=== PATIENT | female | born 1985 | race Caucasian/White ===

== ENCOUNTER 2016-06-28 14:37 | Inpatient (IN) | payer OTHER ==
[~2016-06-28] VITALS: Ht 162.6 cm; Wt 79.6 kg
[~2016-06-28 14:37] MED LIST: ACET500C PO; IBUP80TA PO; PRENTAB8 PO
[2016-06-28] MEDS ORDERED: PROM50TA2 PO (14:55)
[2016-06-28] MEDS ORDERED: NS 1,000 ML IV ONE ×2 (16:15→17:15)
[2016-06-28 16:24] LABS: BASO # 0.1 K/mm3 (0.0-0.2); BASO % 0.3 % (0.0-1.0); EOS % 0.1 % (0.0-3.0); LARGE UNSTAINED CELL # 0.1 K/mm3 (0.0-0.4); LARGE UNSTAINED CELL % 0.6 % (0.0-4.0); LYMPH # 1.1 K/mm3 (1.5-6.5); LYMPH % 5.2 % (24.0-44.0); MEAN CORPUSCULAR HEMOGLOBIN 27.6 pg (27.0-33.0); MEAN CORPUSCULAR HGB CONC 34.3 g/dl (32.0-36.5); MEAN CORPUSCULAR VOLUME 80.4 fl (80.0-96.0); MONO # 0.4 K/mm3 (0.0-0.8); MONO % 2.2 % (0.0-5.0); NEUTROPHILS # 16.9 K/mm3 (1.8-7.7); NEUTROPHILS % 91.5 % (36.0-66.0); PLATELET COUNT, AUTOMATED 232 k/mm3 (150-450); RED CELL DISTRIBUTION WIDTH 13.1 % (11.5-14.5); WHITE BLOOD COUNT 18.5 K/mm3 (4.0-10.0)
[2016-06-28 16:38] LABS: ALBUMIN 2.8 GM/DL (3.2-5.2); ALBUMIN/GLOBULIN RATIO 0.61 (1.00-1.93); ALKALINE PHOSPHATASE 214 U/L (45-117); ALT/SGPT 15 U/L (12-78); ANION GAP 13 MEQ/L (8-16); AST/SGOT 25 U/L (15-37); BILIRUBIN,DIRECT 0.1 MG/DL (0.0-0.2); BILIRUBIN,TOTAL 0.4 MG/DL (0.2-1.0); BLOOD UREA NITROGEN 11 MG/DL (7-18); CALCIUM LEVEL 8.9 MG/DL (8.5-10.1); CARBON DIOXIDE LEVEL 20 MEQ/L (21-32); CHLORIDE LEVEL 106 MEQ/L (98-107); CREATININE FOR GFR 0.52 MG/DL (0.55-1.02); FREE T4 0.82 NG/DL (0.76-1.46); GLOMERULAR FILTRATION RATE > 60.0 (>60); GLUCOSE, FASTING 81 MG/DL (70-105); INR 1.06; POTASSIUM SERUM 3.8 MEQ/L (3.5-5.1); SODIUM LEVEL 139 MEQ/L (136-145); TOTAL PROTEIN 7.4 GM/DL (6.4-8.2)
[2016-06-28] MEDS ORDERED: ISOVUE-370 76% 100ML VIAL (Q9967) As Ordered ONE (16:44)
--- NOTE | 2016-06-28 16:56 | REP ---
Clinical: chest pain. Comparison: none. Findings: The mediastinum and cardiac silhouette are stable and within normal limits for portable technique. The lung ogden are clear without acute consolidation, effusion, or pneumothorax. Skeletal structures are intact. Impression: Normal portable chest x-ray Signed by Sarbjit Fernandes MD 06/28/2016 04:47 P
--- NOTE | 2016-06-28 17:24 | REP ---
Clinical: Chest pain. Rule out pulmonary embolus. Technique: Axial contrast enhanced images from the thoracic inlet to the upper abdomen using 100 ml Isovue 370 intravenous contrast material with coronal and sagittal re-formations. Findings: Suboptimal enhancement of the pulmonary vasculature is noted and no obvious main or first order emboli are identified. Thoracic aorta is normal caliber without aneurysm or dissection. Heart and pericardium are normal. Bilateral lung ogden are well aerated and clear without acute pulmonary parenchymal consolidation or atelectasis. No nodule or mass lesion. No pleural effusion/reaction. No pneumothorax. No adenopathy. Impression: Limited examination. No obvious pulmonary embolus. No acute pleuroparenchymal or mediastinal process. Signed by Sarbjit Fernandes MD 06/28/2016 05:15 P
--- NOTE | 2016-06-28 17:39 | REP ---
Clinical: Calf pain. Technique: Cohen scale and color Doppler evaluation using linear high frequency transducer. Findings: Ultrasound examination of the right and left lower extremity deep venous structures from the common femoral vein to the popliteal vein demonstrates normal compressibility flow and wave patterns in response to respiration and augmentation. There is no evidence for deep venous thrombosis. Impression: No evidence for deep venous thrombosis. Signed by Sarbjit Fernandes MD 06/28/2016 05:30 P
--- NOTE | 2016-06-28 18:31 | ECGEPIP ---
Stationary ECG Study [facility] - ED Test Date: 2016-06-28 Pat Name: KEANU LUIS Department: Room: - Gender: F Washcloth Folder: faith : 1985 Requested By: Patricia Peñaloza Order Number: [id number] Reading MD: Kashif Farrar Measurements Intervals [place] Rate: 149 P: 76 NC: 112 QRS: 68 QRSD: 77 T: 13 QT: 292 QTc: 460 Interpretive Statements SINUS TACHYCARDIA WITH SHORT NC INTERVAL NONSPECIFIC ST & T-WAVE ABNORMALITY ABNORMAL RHYTHM ECG Electronically Signed On 06-28-2016 18:31:17 EDT by Kashif Farrar
--- NOTE | 2016-06-28 18:33 | ECGEPIP ---
Stationary ECG Study [facility] - ED Test Date: 2016-06-28 Pat Name: KEANU LUIS Department: Room: - Gender: F Glued Wood Tester: SOBEIDA : 1985 Requested By: Patricia Peñaloza Order Number: [id number] Reading MD: Kashif Farrar Measurements Intervals [place] Rate: 116 P: 63 OR: 129 QRS: 39 QRSD: 78 T: 5 QT: 321 QTc: 446 Interpretive Statements SINUS TACHYCARDIA NSTTW ABNORMALITY RATE DECREASED COMPARED TO STUDY ON SAME DATE Electronically Signed On 06-28-2016 18:32:38 EDT by Kashif Farrar
[2016-06-28] MEDS ORDERED: ACET-654 PO (19:20)
[2016-06-28] MEDS ORDERED: PRENTAB16 PO (19:20)
[2016-06-28] MEDS ORDERED: ACETAMINOPHEN TAB 650MG DOSE (2X325MG) PO PRN (20:30)
[2016-06-28] MEDS ORDERED: ENOXAPARIN 80 MG/0.8 ML SYRINGE (J1650) SC ONE (21:30)
[2016-06-28] MEDS ORDERED: NS 1,000 ML IV SCH (21:45)
[2016-06-28 21:48] VITALS: O2SAT 96
[2016-06-28 21:57] LABS: ABG BASE EXCESS -3.5 (-2.0-2.0); ABG HCO3 19.8 MEQ/L (22.0-26.0); ABG PARTIAL PRESSURE CO2 29.8 mmHg (35.0-45.0); ABG PARTIAL PRESSURE O2 104.6 mmHg (75.0-100.0); ABG STANDARD HCO3 21.5 MEQ/L (22.0-26.0); ABG TOTAL CO2 20.7 MEQ/L (22.0-29.0)
--- NOTE | 2016-06-28 22:05 | HPEPDOC ---
General Date of Admission Jun 28, 2016 at 20:19 Chief Complaint The patient is a 30-year-old female Presented to the ER with complaints of chest pain History of Present Illness Patient is a 30 year female with a PMHx of suspected PE during (2007; 1st ) who presented to the ER with complaints of chest pain. Patient noted that a few weeks ago she had some leg pain on her left anterior / lateral / proximal leg. She described it as a bruised area that felt like a knot , no redness or swelling of the leg was noted. She denied any trauma to the leg. This spontaneously resolved. She reported that she has been having shortness of breath since that point. Her last appointment with obstetrics was 2 weeks ago and she was told her heart rate was elevated (doesnt remember number). She noted that yesterday she has had some left upper shoulder / back pain. She took a Tylenol and went to bed. This morning she awoke with left sided chest pain. 7-8/10, sharp/tight, continuous, radiating to neck and back. No alleviating factors. Aggravated with deep breaths. Reports she continued to have shortness of breath. Denied palpitations. She noted that this morning she also had nausea and vomiting; greater than 20x, described as yellow with small amounts of blood streaking. No abdominal pain, constipation, diarrhea or dysuria. She denies any fevers at home. She has a history of 4 pregnancies in the past and is currently in her 5th . All other pregnancies went to full term; she had complications of pyelonephritis and asthma during her priors. During her first she was suspected of having a pulmonary embolism because of a similar presentation and was started on an oral anticoagulant from 28 weeks to delivery. Patient also noted that she was advised to follow up with cardiology as an outpatient because of her elevated heart rate, but has failed to do so. Home Medications Scheduled Multivitamins/ ( Complete 14-0.4 mg) 1 Tab Tab 1 TAB PO DAILY ( Reported) Promethazine Hcl (Promethazine HCl) 50 Mg Tab 50 MG PO DAILY (Reported) Scheduled PRN Acetaminophen (Acetaminophen) 325 Mg Tab 650 MG PO Q4H PRN PRN PAIN (Reported) Allergies Coded Allergies: Cephalexin (Verified Allergy, Severe, shortness of breath, throat tightens , 12/26/14) Past Medical History Medical History Suspected PE during (2008; 1st ) Surgical History Left ankle torn ligament surgery Family History - Mother and father with a history of hypertension - No family history of malignancy or blood clots Social History - Denies the use of alcohol, tobacco or illicit drugs - Denies recent travel or sick contacts - Lives with and 4 children - Occupation; chemical specialist Review of Symptoms Other systems Eyes: No visual changes or eye pain Ears, Nose, Throat: Denies nose bleeds, or difficulty swallowing Cardiovascular: Positive chest pain, No sweating, or orthopnea Respiratory: Denies cough, or wheezing, Positive shortness of breath GI: Positive nausea, vomiting, No abdominal pain, diarrhea or constipation : Denies pain with urination or frequency Musculoskeletal: Denies joint pain or swelling Neuro / Psych: Denies muscle weakness or sensory loss Skin: No skin rashes noted All other review of systems negative; otherwise stated in history of present illness Vital Signs - Vitals: BP 110/69, HR 106, RR 20, Sat 97%RA, Temp 97.3 - General: Lying in bed, No acute distress, Speaking in full sentences, AAOx3 - HEENT: NC, AT, PERRLA, EOMI - CVS: Tachycardic, Regular rhythm, +S1S2, - Murmurs / rubs / gallops - Lungs: Fair air entry bilaterally, Clear to auscultation, No wheezing / rales / rhonchi - Abdomen: Soft, Non-tender, + Bowel sounds x 4 - Extremities: + PPx4, No lower extremity edema, No calf tenderness - Neuro: No focal motor or sensory deficit - Skin: No visible rashes Laboratory Data Labs 24H Laboratory Tests 2 06/28/16 15:35: Activated Partial Thromboplast Time 25.3L, Aspartate Amino Transf (AST/SGOT) 25 , Alanine Aminotransferase (ALT/SGPT) 15, Alkaline Phosphatase 214H, Total Bilirubin 0.4, Direct Bilirubin 0.1, Albumin 2.8L, Albumin/Globulin Ratio 0.61L , Anion Gap 13, White Blood Count 18.5H, Red Blood Count 4.12, Hemoglobin 11.4L , Hematocrit 33.1L, Mean Corpuscular Volume 80.4, Mean Corpuscular Hemoglobin 27.6, Mean Corpuscular Hemoglobin Concent 34.3, Red Cell Distribution Width 13.1 , Platelet Count 232, Neutrophils (%) (Auto) 91.5H, Lymphocytes (%) (Auto) 5.2L , Monocytes (%) (Auto) 2.2, Eosinophils (%) (Auto) 0.1, Basophils (%) (Auto) 0.3 , Neutrophils # (Auto) 16.9H, Lymphocytes # (Auto) 1.1L, Monocytes # (Auto) 0.4 , Eosinophils # (Auto) 0.0, Basophils # (Auto) 0.1, Calcium Level 8.9, Creatine Kinase MB 1.7, Creatine Kinase MB Relative Index 1.40, Free Thyroxine 0.82, Gamma Glutamyl Transpeptidase 12, Glomerular Filtration Rate > 60.0, Large Unclassified Cells # 0.1, Large Unclassified Cells % 0.6, Lipase 75, Prothromb Time International Ratio 1.06, Prothrombin Time 13.9, Thyroid Stimulating Hormone (TSH) 1.270, Total Creatine Kinase 121, Total Protein 7.4, Troponin I < 0.02 06/28/16 20:25: D-Dimer, Quantitative 3056.5H 06/28/16 21:39: Arterial Blood pH 7.440, Arterial Blood Partial Pressure CO2 29.8L, Arterial Blood Partial Pressure O2 104.6H, Arterial Blood Total CO2 20.7L, Arterial Blood HCO3 19.8L, Arterial Blood Base Excess -3.5L, Arterial Blood Oxygen Saturation 98.0, Blood Gas Bicarbonate Standard 21.5L CBC/BMP Laboratory Tests 06/28/16 15:35 Red Blood Count 4.12, Mean Corpuscular Volume 80.4, Mean Corpuscular Hemoglobin 27.6, Mean Corpuscular Hemoglobin Concent 34.3, Red Cell Distribution Width 13.1 , Neutrophils (%) (Auto) 91.5 H, Lymphocytes (%) (Auto) 5.2 L, Monocytes (%) ( Auto) 2.2, Eosinophils (%) (Auto) 0.1, Basophils (%) (Auto) 0.3, Neutrophils # ( Auto) 16.9 H, Lymphocytes # (Auto) 1.1 L, Monocytes # (Auto) 0.4, Eosinophils # (Auto) 0.0, Basophils # (Auto) 0.1 Plan / VTE VTE Prophylaxis Ordered?: Yes Plan Plan Chest pain, dyspnea, tachycardia possibly 2/2 pulmonary embolism - Initially had leg pain / knot that resolved, progressed to shortness of breath and chest pain - History of tachycardia for a few weeks - Failed to follow up with cardiology as an outpatient - Physical reveals tachycardia only - Elevated d-dimers; possible with normal alone not useful study - US lower extremities negative and CXR negative - CTA chest 06/28: Limited examination / no obvious pulmonary embolism - EKG reveals sinus tachycardia no evidence of right heart strain - Will get stat ECHO - Given high suspicion of pulmonary embolism given clinical picture, inability to definitely rule of pulmonary embolism given existing testing and history of prior pulmonary embolism during (2007) will need to anticoagulate at this time - Will give one dose of Lovenox Discussed with patient about risk of pulmonary embolism and risk of bleeding - Will get V/Q scan stat; discussed with nursing correctional supervisor cannot be done overnight - Discussed case with Dr. Muna Mancini (Obstetrics) Leukocytosis possibly 2/2 reactive etiology, possibly 2/2 infectious etiology - review of systems is negative; other than nausea and vomiting - CXR negative - will check lactic acid, blood cultures, urine cultures and urinalysis - will hold off on antibiotics at this time Anion gap metabolic acidosis - Delta / Delta: <1 - Will check lactic acid - s/p 2 L of NS in the Er - Will c/w IV fluid hydration Normocytic anemia - no evidence of bleeding - will monitor for now Elevated alkaline phosphatase - Possibly 2/2 hepatobiliary etiology - Reports nausea and vomiting - No abdominal pain or tenderness - Will check GGT and US abdomen 35 weeks - No obstetric complications throughout - Has been seen and evaluated by obstetrics in the ER - Dr. Muna Mancini on consult DVT prophylaxis - Will give one dose of Lovenox (See #1) BETTY OLVERA MD Jun 28, 2016 22:05
[2016-06-28 22:28] LABS: INR 1.1
[2016-06-28 22:35] LABS: MEAN CORPUSCULAR HEMOGLOBIN 26.4 pg (27.0-33.0); MEAN CORPUSCULAR HGB CONC 32.7 g/dl (32.0-36.5); MEAN CORPUSCULAR VOLUME 80.6 fl (80.0-96.0); RED CELL DISTRIBUTION WIDTH 13.1 % (11.5-14.5); WHITE BLOOD COUNT 12.6 K/mm3 (4.0-10.0)
[2016-06-28] MEDS ORDERED: PROMETHAZINE INJ 25 MG/ML VIAL (J2550) IV PRN (22:45)
--- NOTE | 2016-06-28 23:10 | REPUSA ---
CLINICAL HISTORY: Abdominal pain. TECHNIQUE: Realtime sonographic images were obtained in multiple projections. COMMENTS: The liver is of normal size, parenchyma demonstrates normal echogenicity. No discrete hepatic mass is seen. There is no intra or extrahepatic biliary ductal dilatation. CBD measures 3 mm. The gallbladder is ph ysiologically distended without evidence of calculi. The gallbladder wall is not thickened and there is no pericholecystic fluid. There is no abdominal ascites. The right kidney measures 12.5 cm, free of hydronephrosis. Live IUP is noted, 139 bpm. IMPRESSION: Unremarkable study. Thank you for your kind referral of this patient.
[2016-06-29] VITALS (8 sets, daily range): BP systolic 108–130; BP diastolic 52–80
[2016-06-29 06:09] LABS: BASO % 0.2 % (0.0-1.0); EOS # 0.1 K/mm3 (0.0-0.50); EOS % 0.8 % (0.0-3.0); LARGE UNSTAINED CELL # 0.2 K/mm3 (0.0-0.4); LARGE UNSTAINED CELL % 1.3 % (0.0-4.0); LYMPH # 2.5 K/mm3 (1.5-6.5); LYMPH % 21.3 % (24.0-44.0); MEAN CORPUSCULAR HEMOGLOBIN 26.6 pg (27.0-33.0); MEAN CORPUSCULAR HGB CONC 32.9 g/dl (32.0-36.5); MEAN CORPUSCULAR VOLUME 80.9 fl (80.0-96.0); MONO # 0.7 K/mm3 (0.0-0.8); NEUTROPHILS # 7.8 K/mm3 (1.8-7.7); NEUTROPHILS % 70.3 % (36.0-66.0); PLATELET COUNT, AUTOMATED 197 k/mm3 (150-450); RED CELL DISTRIBUTION WIDTH 13.2 % (11.5-14.5)
[2016-06-29 06:25] LABS: ALBUMIN 2.1 GM/DL (3.2-5.2); ALBUMIN/GLOBULIN RATIO 0.53 (1.00-1.93); ALKALINE PHOSPHATASE 157 U/L (45-117); ALT/SGPT 14 U/L (12-78); ANION GAP 10 MEQ/L (8-16); AST/SGOT 26 U/L (15-37); BILIRUBIN,TOTAL 0.4 MG/DL (0.2-1.0); BLOOD UREA NITROGEN 7 MG/DL (7-18); CALCIUM LEVEL 8.1 MG/DL (8.5-10.1); CARBON DIOXIDE LEVEL 21 MEQ/L (21-32); CHLORIDE LEVEL 108 MEQ/L (98-107); CREATININE FOR GFR 0.38 MG/DL (0.55-1.02); GLOMERULAR FILTRATION RATE > 60.0 (>60); GLUCOSE, FASTING 75 MG/DL (70-105); MAGNESIUM LEVEL 1.7 MG/DL (1.8-2.4); POTASSIUM SERUM 3.3 MEQ/L (3.5-5.1); SODIUM LEVEL 139 MEQ/L (136-145); TOTAL PROTEIN 6.1 GM/DL (6.4-8.2)
[2016-06-29] MEDS ORDERED: MAG SULF 1GM/100ML (MAG RUN) 1 GM in APPROPRIATE DILUENT 1 EA IV ONE (06:45)
[2016-06-29] MEDS ORDERED: POTASSIUM CHLORIDE 10 MEQ SR TABLET PO ONE (06:45)
--- NOTE | 2016-06-29 07:33 | ECHO ---
DATE OF PROCEDURE: 06/28/2016 REFERRING PHYSICIAN: Dr. Chary Ruvalcaba The study was performed in emergency room on 06/28/2016 INDICATION: Dyspnea. The patient is currently 35 weeks . The patient measures 160 cm and weighs 80 kg. DIMENSIONS: IVS - 1.1 LV - 4.1 LVPW - 1.0 LA - 3.4 Aorta - 2.8 Ascending aorta - 2.4 RV - 1.8 LV systolic - 2.5 E prime velocity lateral 13.8 E prime velocity septal 11.0 cm/s FINDINGS: The study is of good technical quality. The patient was remarkably tachycardia during the study with heart rate between 110 and 128 beats per minute. Left ventricle is normal size and contractility with estimated EF around 60 to 65%. Right ventricle does not appear enlarged and is normally contractile. Both atria appear normal. All four cardiac valves were reasonably well seen and appear normal. No pericardial effusion is noted. Inferior vena cava is of small-caliber. Aortic root and aortic arch appear normal. Abdominal aorta was not well seen. Doppler interrogation reveals no aortic stenosis or insufficiency. There is trace mitral insufficiency and trace tricuspid insufficiency. Calculated pulmonary artery pressure is within normal limits. Pulmonic valve is also functionally competent. Mitral inflow pattern and tissue Doppler imaging of mitral annulus reveal normal diastolic function. CONCLUSION: 1. Study is of good technical quality. 2. Normal LV size, systolic and diastolic function. 3. No significant valvular disease. 4. Normal central venous pressure and likely normal pulmonary artery pressure. COMMENT: Essentially normal echocardiogram.
[2016-06-29] MEDS: PRENATAL VITAMIN TAB PO SCH (08:25)
--- NOTE | 2016-06-29 13:08 | REP ---
V/Q SCAN: Following the intravenous administration of 3.3 mCi of technetium 99m tagged MAA and the inhalation of 1 mCi of technetium 99m DTPA aerosol, multiple images of the lungs are obtained in various projections. There are small subsegmental matching ventilation and perfusion defects in both lung apices. I do not see any areas of significant V/Q mismatch. IMPRESSION: Low probability of pulmonary embolism. Signed by Moe Cohen MD 06/29/2016 03:31 P
--- NOTE | 2016-06-29 16:43 | IPNPDOC ---
Date Seen The patient was seen on 06/29/16. Progress Note SUBJECTIVE: Ms. Reddy is a 30-year-old female at 35 weeks gestation who presented with shortness of breath and chest pain. She reports no acute events overnight. She denies nausea, vomiting, abdominal pain, persistent pain in her lower extremities. She describes the chest pain as a heaviness on the left side of her chest that is exacerbated by her lying on her left side. The pain is lessened when she lies on her right side. She is unable to change the character of the pain with a deep breath, cough, or change in position. Patient is tachycardic and there is a concern for pulmonary embolism. OBJECTIVE PHYSICAL EXAMINATION: VITAL SIGNS: Please see below. GENERAL: Very pleasant female who is resting comfortably in bed upon evaluation this morning, appears stated age, appears in no apparent distress HEENT: Atraumatic, normocephalic, PERRL, EOMI, oral mucosa appears pink and moist, nasal septum appears midline CARDIOVASCULAR: Regular rate and rhythm, normal S1 and S2, tachycardic, no appreciable murmur noted, no rubs, clicks, gallops RESPIRATORY: Clear to auscultation bilaterally, appropriate inspiratory and expiratory airway excursion, breathing is unlabored, no wheeze, crackles, rhonchi ABDOMINAL: 35 weeks gestation EXTREMITIES: Peripheral pulses appreciated bilaterally in upper and lower extremities, no appreciable edema, no pain with palpation to the posterior lower extremities, and restricted movement of all extremities NEUROLOGICAL: Cranial nerves II through XII appear grossly intact, moves all extremities freely PSYCHOLOGICAL: Mood and affect appear appropriate, pleasantly conversant LABORATORY DATA: Please see below. MICROBIOLOGY: Please see below. IMAGING: Ventilation and perfusion lung scan There are small subsegmental matching ventilation and perfusion defects in both lung apices. I do not see any areas of significant VQ mismatch. IMPRESSION: Low probability of pulmonary embolism. Echocardiogram: FINDINGS: The study is of good technical quality. The patient was remarkably tachycardia during the study with a heart rate between 110 and 128 bpm. Left ventricle is normal size and contractility with estimated EF around 60-65%. Right ventricle does not appear enlarged and is normally contractile. Both atria appear normal. All four cardiac valves were reasonably well seen and appear normal. No pericardial effusion is noted. Inferior vena cava is of small caliber. Aortic root and aortic arch appear normal. Abdominal aorta was not well seen. Doppler interrogation reveals no aortic stenosis or insufficiency. There is trace mitral insufficiency and trace tricuspid insufficiency. Calculated pulmonary artery pressures within normal limits. Pulmonic valve is also a functioning competent. Mitral inflow pattern and tissue Doppler imaging of mitral annulus revealed normal diastolic function. CONCLUSION: Study is of good technical quality. Normal LV size, systolic and diastolic function. No significant valvular disease. Normal central venous pressure and likely normal palmar artery pressure. DVT prophylaxis ordered?: Activity as tolerated ASSESSMENT AND PLAN: This is a 30-year-old female that is 35 weeks gestation who presented to [facility] with shortness of breath and chest pain. Concern for pulmonary embolus. PROBLEMS: 1. Tachycardia: Patient's heart rate continues to be elevated. TSH is 1.270 with a free T4 0.82. Will need to inquire about caffeine intake. Fluids have been discontinued. Have discussed with nurse and at time of dictation patient's heart rate was in the 70s. Advised staff to encourage the patient ambulate. 2. Elevated d-dimer: Patient's d-dimer was 3056.5. CT angiogram revealed no evidence of pulmonary embolism. A follow-up ventilation perfusion scan was performed which reveals low probability for pulmonary embolism. Would consider referring patient to outpatient pulmonology for further workup of shortness of breath. 3. Leukocytosis: Patient's white count is 11. This continues to trend down. Most likely an acute phase reactant. We'll continue to monitor with daily CBC. 4. Anemia: H&H is 9.3 and 28.2, respectively. Continues to decrease, but appears stable compared to yesterday. Could likely be secondary to and possible delusional effect. 5. Hypokalemia: Patient's potassium this morning was 3.3. Supplement potassium with 40 mEq. We'll monitor with BMP. DISPOSITION: Patient remains admitted to progressive care unit. Echocardiogram and ventilation and perfusion scan was essentially negative. Could consider referring patient to outpatient pulmonology for continued workup of shortness of breath. We'll ascertain patient's caffeine intake. TSH and free T4 were normal. Intravenous fluid resuscitation has been discontinued. Have advised staff to encourage patient to ambulate. Potential discharge tomorrow. VS, I&O, 24H, Fishbone Vital Signs/I&O Vital Signs Date Time Temp Pulse Resp B/P Pulse Ox O2 Delivery O2 Flow Rate FiO2 06/29/16 13:00 98.0 104 16 120/56 100 Room Air I&O- Last 24 Hours up to 6 AM 06/29/16 06:00 Intake Total 3000 ml Output Total 825 ml Balance 2175 ml Laboratory Data 24H LABS Laboratory Tests 2 06/28/16 20:25: D-Dimer, Quantitative 3056.5H 06/28/16 21:39: Arterial Blood pH 7.440, Arterial Blood Partial Pressure CO2 29.8L, Arterial Blood Partial Pressure O2 104.6H, Arterial Blood Total CO2 20.7L, Arterial Blood HCO3 19.8L, Arterial Blood Base Excess -3.5L, Arterial Blood Oxygen Saturation 98.0, Blood Gas Bicarbonate Standard 21.5L 06/28/16 21:57: Creatine Kinase MB 3.6, Creatine Kinase MB Relative Index 1.69, Lactic Acid Level 0.8, Prothromb Time International Ratio 1.10, Prothrombin Time 14.3, Total Creatine Kinase 213#H, Troponin I < 0.02 06/28/16 22:08: C-Reactive Protein, Quantitative 2.50H, Erythrocyte Sedimentation Rate 69H 06/29/16 00:03: Urine Amorphous Sediment , Urine Appearance HAZY, Urine Color YELLOW, Urine pH 5.0, Urine Specific [place] 1.049, Urine Protein NEGATIVE, Urine Glucose (UA) NEGATIVE, Urine Ketones 2+H, Urine Urobilinogen 0.2, Urine Bilirubin NEGATIVE, Urine Leukocyte Esterase NEGATIVE, Urine Bacteria (Auto) 1+H, Urine Blood NEGATIVE, Urine Calcium Carbonate Cryst(Auto) , Urine Calcium Oxalate Cryst ( Auto) , Urine Calcium Phosphate Arleth (Auto) , Urine Cellular Casts , Urine Cystine Crystals , Urine Granular Casts (Auto) , Urine Hyaline Casts (Auto) 0, Urine Leucine Crystals , Urine Mucus (Auto) SMALL, Urine Nitrite NEGATIVE, Urine Oval Fat Bodies (Auto) , Urine RBC (Auto) 1, Urine Renal Epithelial Cells , Urine Sperm (Auto) , Urine Squamous Epithelial Cells 4, Urine Transitional Epithelial Cells , Urine Trichomonas (Auto) , Urine Triple Phosphate Cryst (Auto ) , Urine Tyrosine Crystals , Urine Uric Acid Crystals (Auto) , Urine WBC (Auto ) 1, Urine Waxy Casts (Auto) , Urine Yeast-Like Cells (Auto) 06/29/16 05:44: Blood Urea Nitrogen 7, Creatinine 0.38L, Sodium Level 139, Potassium Level 3.3L , Chloride Level 108H, Carbon Dioxide Level 21, Calcium Level 8.1L, Aspartate Amino Transf (AST/SGOT) 26, Alanine Aminotransferase (ALT/SGPT) 14, Total Creatine Kinase 287H, Alkaline Phosphatase 157H, Total Bilirubin 0.4, Total Protein 6.1L, Albumin 2.1#L, Albumin/Globulin Ratio 0.53L, Anion Gap 10, White Blood Count 11.0H, Red Blood Count 3.48L, Hemoglobin 9.3L, Hematocrit 28.2L, Mean Corpuscular Volume 80.9, Mean Corpuscular Hemoglobin 26.6L, Mean Corpuscular Hemoglobin Concent 32.9, Red Cell Distribution Width 13.2, Platelet Count 197, Neutrophils (%) (Auto) 70.3H, Lymphocytes (%) (Auto) 21.3L, Monocytes (%) (Auto) 6.0H, Eosinophils (%) (Auto) 0.8, Basophils (%) (Auto) 0.2 , Neutrophils # (Auto) 7.8H, Lymphocytes # (Auto) 2.5, Monocytes # (Auto) 0.7, Eosinophils # (Auto) 0.1, Basophils # (Auto) 0.0, Creatine Kinase MB 4.1H, Creatine Kinase MB Relative Index 1.42, Glomerular Filtration Rate > 60.0, Large Unclassified Cells # 0.2, Large Unclassified Cells % 1.3, Magnesium Level 1.7L, Troponin I < 0.02 CBC/BMP Laboratory Tests 06/28/16 22:08 Red Blood Count 3.68 L, Mean Corpuscular Volume 80.6, Mean Corpuscular Hemoglobin 26.4 L, Mean Corpuscular Hemoglobin Concent 32.7, Red Cell Distribution Width 13.1 06/29/16 05:44 Red Blood Count 3.48 L, Mean Corpuscular Volume 80.9, Mean Corpuscular Hemoglobin 26.6 L, Mean Corpuscular Hemoglobin Concent 32.9, Red Cell Distribution Width 13.2, Calcium Level 8.1 L, Aspartate Amino Transf (AST/SGOT) 26, Alanine Aminotransferase (ALT/SGPT) 14, Total Creatine Kinase 287 H, Alkaline Phosphatase 157 H, Total Bilirubin 0.4, Total Protein 6.1 L, Albumin 2.1 #L, Neutrophils (%) (Auto) 70.3 H, Lymphocytes (%) (Auto) 21.3 L, Monocytes (%) (Auto) 6.0 H, Eosinophils (%) (Auto) 0.8, Basophils (%) (Auto) 0.2, Neutrophils # (Auto) 7.8 H, Lymphocytes # (Auto) 2.5, Monocytes # (Auto) 0.7, Eosinophils # (Auto) 0.1, Basophils # (Auto) 0.0 Microbiology Microbiology 06/28/16 Blood Culture, Received Pending 06/28/16 Blood Culture, Received Pending 06/29/16 Gastrointestinal Tract Panel (PCR) - Final, Complete 06/29/16 Urine Culture, Received Pending LAURE MOORE-Erika Jun 29, 2016 16:43 MARY JO CAO MD Jun 30, 2016 10:44
[2016-06-29 20:22] LABS: INR 1.03
[2016-06-29] MEDS ORDERED: NS 1,000 ML IV SCH (21:15)
--- NOTE | 2016-06-29 22:16 | ECGEPIP ---
Stationary ECG Study [facility] Test Date: 2016-06-29 Pat Name: KEANU LUIS Department: Room: [place] [address] Gender: F Financial Aid Officer: TELMA : 1985 Requested By: BETTY OLVERA Order Number: [id number] Reading MD: Abel Chacon Measurements Intervals [place] Rate: 107 P: 52 ND: 131 QRS: 42 QRSD: 77 T: 3 QT: 342 QTc: 457 Interpretive Statements SINUS TACHYCARDIA NONSPECIFIC T-WAVE ABNORMALITY ABNORMAL RHYTHM ECG SIMILAR 06/28/16 Electronically Signed On 06-29-2016 22:16:35 EDT by Abel Chacon
[2016-06-30 04:00] VITALS: BP 117/71
[2016-06-30 06:31] LABS: BASO % 0.2 % (0.0-1.0); EOS # 0.1 K/mm3 (0.0-0.50); EOS % 1.6 % (0.0-3.0); LARGE UNSTAINED CELL # 0.1 K/mm3 (0.0-0.4); LARGE UNSTAINED CELL % 1.5 % (0.0-4.0); LYMPH # 1.9 K/mm3 (1.5-6.5); LYMPH % 20.6 % (24.0-44.0); MEAN CORPUSCULAR HEMOGLOBIN 26.5 pg (27.0-33.0); MONO # 0.7 K/mm3 (0.0-0.8); MONO % 7.9 % (0.0-5.0); NEUTROPHILS # 5.7 K/mm3 (1.8-7.7); NEUTROPHILS % 68.1 % (36.0-66.0); PLATELET COUNT, AUTOMATED 188 k/mm3 (150-450); RED CELL DISTRIBUTION WIDTH 13.5 % (11.5-14.5); WHITE BLOOD COUNT 8.4 K/mm3 (4.0-10.0)
[2016-06-30 06:50] LABS: ALBUMIN/GLOBULIN RATIO 0.54 (1.00-1.93); ALKALINE PHOSPHATASE 144 U/L (45-117); ALT/SGPT 13 U/L (12-78); ANION GAP 7 MEQ/L (8-16); AST/SGOT 21 U/L (15-37); BILIRUBIN,TOTAL 0.1 MG/DL (0.2-1.0); BLOOD UREA NITROGEN 4 MG/DL (7-18); CALCIUM LEVEL 7.8 MG/DL (8.5-10.1); CARBON DIOXIDE LEVEL 24 MEQ/L (21-32); CHLORIDE LEVEL 111 MEQ/L (98-107); CREATININE FOR GFR 0.34 MG/DL (0.55-1.02); GLOMERULAR FILTRATION RATE > 60.0 (>60); GLUCOSE, FASTING 76 MG/DL (70-105); MAGNESIUM LEVEL 1.6 MG/DL (1.8-2.4); POTASSIUM SERUM 3.4 MEQ/L (3.5-5.1); SODIUM LEVEL 142 MEQ/L (136-145); TOTAL PROTEIN 5.7 GM/DL (6.4-8.2)
[2016-06-30 08:00] VITALS: BP 113/76
[2016-06-30] MEDS ORDERED: POTASSIUM CHLORIDE 10 MEQ SR TABLET PO ONE (08:00)
[2016-06-30] MEDS: MAG SULF 1GM/100ML (MAG RUN) 1 GM in APPROPRIATE DILUENT 1 EA IV SCH ×2 (08:55→10:25)
[2016-06-30] MEDS: PRENATAL VITAMIN TAB PO SCH (08:55)
--- NOTE | 2016-06-30 17:44 | DS.PDOC ---
Discharge Summary General Date of Admission Jun 28, 2016 at 20:19 Date of Discharge Jun 30, 2016 at 11:54 Attending Physician: MARY JO CAO MD Specialist/Consultants Involve: RANDELL PERALES MD Specialist/Consultants Involve Obstetrics and gynecology Discharge Summary PROCEDURES PERFORMED DURING STAY: Echocardiogram FINDINGS: The study is of good technical quality. The patient was remarkably tachycardia during the study with heart rate to 110 and 1 28 bpm. Left ventricle is normal size and contractility with estimated EF around 60-65%. Right ventricle does not appear enlarged and is normally contractile. Both atria appear normal. All four cardiac valves were recently well seen and appear normal. No pericardial effusion is noted. Inferior vena cava is small caliber. Aortic root and aortic arch appeared normal. Abdominal aorta was not well seen. Doppler interrogation reveals no aortic stenosis or insufficiency. There is trace mitral insufficiency and trace tricuspid insufficiency. Calculated pulmonary artery pressure is within normal limits. Pulmonic valve is also functional competent. Mitral inflow pattern and tissue Doppler imaging of mitral annulus revealed normal diastolic function. CONCLUSION: 1. Study is of good technical quality. 2. Normal LV size, systolic and diastolic function. 3. No significant valvular disease. 4. Normal central venous pressure and likely normal pulmonary artery pressure. ADMITTING DIAGNOSES: 1. Chest pain, dyspnea, tachycardia 2. Leukocytosis 3. Anion gap metabolic acidosis 4. Normocytic anemia 5. Elevated alkaline phosphatase 6. 35 weeks gestation DISCHARGE DIAGNOSES: 1. Suspected pulmonary embolism 2. Tachycardia 3. Hypokalemia COMPLICATIONS/CHIEF COMPLAINT: Suspected Pulmonary Embolism;Tachycardia. HISTORY OF PRESENT ILLNESS: Mrs. sanchez is a 30-year-old female who presented to [facility]'s emergency Department with chest pain. She noted some pain in her left anterior/lateral/proximal leg that she described as a bruised area pelvic not. She denied redness swelling or any trauma. States that spontaneously resolved. She then reports shortness of breath since that point. Her last obstetric appointment 2 weeks ago revealed an elevated heart rate. The day before admission she noted some left upper shoulder /back pain. She took Tylenol and went to bed. When she worked the next morning she had left-sided chest pain that she describes as sharp/tight and continuous that radiates to her neck and back. Rate 78 and 10. No alleviating factors. Worse with deep breaths. She continues to have shortness of breath. Denied palpitations. He also reports nausea and vomiting before presentation. Greater than 20 times and described as yellow with small amounts of blood streaking. Denies abdominal pain, constipation, diarrhea, dysuria, fever. with prior pregnancies being full-term. Complications included pyelonephritis asthma. States that with her first was concerned about pulmonary emboli she had a similar presentation. She was placed on oral anticoagulation from 28 weeks to delivery. Was advised to follow up with cardiology secondary to her elevated heart rate, but failed to do so. Hospitalist service was consulted and patient was subsequently admitted for further medical management. HOSPITAL COURSE: Admitted patient to progressive care unit and obtained ultrasound of the lower extremities and chest x-ray. CT angiogram was also obtained in the emergency department revealed no pulmonary emboli. EKG revealed sinus tachycardia. Ordered an echocardiogram which was essentially negative. Ordered a V/Q scan and abdominal ultrasound. Gave patient 1 dose of Lovenox. Consulted obstetrics and gynecology. Obtain labs. Provided intravenous fluid resuscitation. Patient did have some hypokalemia and was supplemented appropriately. Encouraged patient to ambulate. Discussed with cardiology regarding patient's tachycardia. No changes were recommended to patient's current medical management. Recommended patient follow-up with pulmonology secondary to shortness of breath. Patient is active duty and placed patient on restricted duty for 2 weeks following discharge. Patient had appropriate hospital course and stable enough for discharge. DISCHARGE MEDICATIONS: Please see below. ALLERGIES: Please see below. PHYSICAL EXAMINATION ON DISCHARGE: VITAL SIGNS: Please see below. GENERAL: Pleasant female sitting comfortably in hospital bed who appears stated age and in no apparent distress HEENT: Atraumatic, normocephalic, PERRL, EOMI, oral mucosa appears pink and moist, nasal septum appears midline, nares are patent NECK: Supple, trachea midline, no lymphadenopathy appreciated CARDIOVASCULAR EXAMINATION: Regular rate and rhythm, normal S1 and S2, no murmurs, rubs, clicks RESPIRATORY EXAMINATION: Clear to auscultation bilaterally, normal expiratory and inspiratory airway excursion, no wheeze, crackles, rhonchi ABDOMINAL EXAMINATION: Gravid uterus EXTREMITIES: Peripheral pulses appreciated bilaterally in upper and lower extremities, moves all extremities appropriately, no appreciable edema noted SKIN: Warm, dry, intact, no lesions or rashes noted, tattoos present NEUROLOGICAL EXAMINATION: Cranial nerves II through XII grossly intact, moving all 4 extremities PSYCHIATRIC EXAMINATION: Mood and affect appear appropriate LABORATORY DATA: Please see below. IMAGING: Portable chest x-ray FINDINGS: The mediastinum and cardiac silhouette was stable and within normal limits portable technique. The lung ogden are clear without acute consolidation , effusion, or pneumothorax. Scleral structures are intact. IMPRESSION: Normal portable chest x-ray CT angiogram of the chest FINDINGS: Suboptimal enhancement of the pulmonary vasculature is noted and no obvious remain full faced with emboli identified. Thoracic aorta is normal caliber without aneurysm or dissection. Heart and pericardium were normal. Bilateral lung ogden are well aerated and clear without acute pulmonary parenchymal consolidation or atelectasis. No nodule or mass lesion. No pleural effusions/reaction. No pneumothorax. No adenopathy. IMPRESSION: Limited examination. No obvious pulmonary embolus. No acute parenchymal or mediastinal process. Duplex ultrasound of bilateral lower extremity FINDINGS: Ultrasound examination of the right and left lower extremity deep venous structures from the common femoral vein to the popliteal vein demonstrates normal compressibility flow and wave patterns and response to respiration or palpitation. There is no evidence for deep venous thrombosis. IMPRESSION: No evidence for deep venous thrombosis. Abdominal ultrasound COMMENTS: The liver is normal size, parenchyma demonstrating normal echogenicity. No discrete hepatic masses seen. There is no intra-or extrahepatic biliary ductal dilatation. CBD measures 3 mm. The gallbladder is physiologically distended without evidence of calculi. The gallbladder wall is not thickened and there is no pericholecystic fluid. There is no abdominal ascites. The right kidney measures 12.5 cm, free of hydronephrosis. Live IUP is noted, 139 bpm. IMPRESSION: unremarkable study. Ventilation and perfusion lung scan There are small subsegmental matching ventilation perfusion defects in both lung apices. I do not see any areas of significant V/Q mismatch. IMPRESSION: Low probability of pulmonary embolism. PROGNOSIS: Stable for discharge ACTIVITY: Restricted duty for 2 weeks DIET: Regular DISCHARGE PLAN: Manage health at home. Improved health and wellness. Follow discharge instructions. DISPOSITION: 01 Home, Self-Care. DISCHARGE INSTRUCTIONS: 1. Follow-up with obstetrics on July 07 at 7:45 AM 2. Follow-up with Dr. Shanks on July 01 at 8:40 AM at [facility] ITEMS TO FOLLOWUP ON ON OUTPATIENT: 1. Dent Remover and primary care provider to make cardiology referral for tachycardia as soon as possible within 2 weeks of hospital discharge 2. Remain on restricted duty for 2 weeks following discharge DISCHARGE CONDITION: Stable TIME SPENT ON DISCHARGE: Greater than 45 minutes. Vital Signs/I&Os Vital Signs Date Time Temp Pulse Resp B/P Pulse Ox O2 Delivery O2 Flow Rate FiO2 06/30/16 08:00 97.8 102 18 113/76 93 Room Air I&O- Last 24 Hours up to 6 AM 06/30/16 06:00 Intake Total 2730 ml Output Total 4075 ml Balance -1345 ml Laboratory Data Labs 24H Laboratory Tests 2 06/29/16 20:04: Prothromb Time International Ratio 1.03, Prothrombin Time 13.6 06/30/16 06:05: Blood Urea Nitrogen 4L, Creatinine 0.34L, Sodium Level 142, Potassium Level 3.4L , Chloride Level 111H, Carbon Dioxide Level 24, Calcium Level 7.8L, Aspartate Amino Transf (AST/SGOT) 21, Alanine Aminotransferase (ALT/SGPT) 13, Alkaline Phosphatase 144H, Total Bilirubin 0.1#L, Total Protein 5.7L, Albumin 2.0L, Albumin/Globulin Ratio 0.54L, Anion Gap 7L, White Blood Count 8.4, Red Blood Count 3.34L, Hemoglobin 8.9L, Hematocrit 27.7L, Mean Corpuscular Volume 83.0, Mean Corpuscular Hemoglobin 26.5L, Mean Corpuscular Hemoglobin Concent 32.0, Red Cell Distribution Width 13.5, Platelet Count 188, Neutrophils (%) (Auto) 68.1H, Lymphocytes (%) (Auto) 20.6L, Monocytes (%) (Auto) 7.9H, Eosinophils (%) (Auto) 1.6, Basophils (%) (Auto) 0.2, Neutrophils # (Auto) 5.7, Lymphocytes # ( Auto) 1.9, Monocytes # (Auto) 0.7, Eosinophils # (Auto) 0.1, Basophils # (Auto) 0.0, Glomerular Filtration Rate > 60.0, Large Unclassified Cells # 0.1, Large Unclassified Cells % 1.5, Magnesium Level 1.6L CBC/BMP Laboratory Tests 06/30/16 06:05 Calcium Level 7.8 L, Aspartate Amino Transf (AST/SGOT) 21, Alanine Aminotransferase (ALT/SGPT) 13, Alkaline Phosphatase 144 H, Total Bilirubin 0.1 #L, Total Protein 5.7 L, Albumin 2.0 L, Red Blood Count 3.34 L, Mean Corpuscular Volume 83.0, Mean Corpuscular Hemoglobin 26.5 L, Mean Corpuscular Hemoglobin Concent 32.0, Red Cell Distribution Width 13.5, Neutrophils (%) (Auto ) 68.1 H, Lymphocytes (%) (Auto) 20.6 L, Monocytes (%) (Auto) 7.9 H, Eosinophils (%) (Auto) 1.6, Basophils (%) (Auto) 0.2, Neutrophils # (Auto) 5.7, Lymphocytes # (Auto) 1.9, Monocytes # (Auto) 0.7, Eosinophils # (Auto) 0.1, Basophils # (Auto) 0.0 Microbiology Microbiology 06/28/16 Blood Culture - Preliminary, Resulted No growth after 24 hours . All specim... 06/28/16 Blood Culture - Preliminary, Resulted No growth after 24 hours . All specim... 06/29/16 Gastrointestinal Tract Panel (PCR) - Final, Complete 06/29/16 Urine Culture - Final, Complete Discharge Medications Scheduled Multivitamins/ ( Complete 14-0.4 mg) 1 Tab Tab 1 TAB PO DAILY ( Reported) Promethazine Hcl (Promethazine HCl) 50 Mg Tab 50 MG PO DAILY (Reported) Scheduled PRN Acetaminophen (Acetaminophen) 325 Mg Tab 650 MG PO Q4H PRN PRN PAIN (Reported) Allergies Coded Allergies: Cephalexin (Verified Allergy, Severe, shortness of breath, throat tightens , 12/26/14) LAURE MOORE Jun 30, 2016 17:44
--- NOTE | 2016-07-01 21:52 | ECGEPIP ---
Stationary ECG Study [facility] Test Date: 2016-06-30 Pat Name: KEANU LUIS Department: Room: [place] [address] Gender: F Manager Of Distribution: JODIE : 1985 Requested By: MARY JO Olson Order Number: [id number] Reading MD: Abel Chacon Measurements Intervals [place] Rate: 108 P: 57 NH: 137 QRS: 44 QRSD: 91 T: -10 QT: 331 QTc: 445 Interpretive Statements SINUS TACHYCARDIA NONSPECIFIC T-WAVE ABNORMALITY NO CHANGE 07/01/15 Electronically Signed On 07-01-2016 21:52:22 EDT by Abel Chacon
== END 2016-06-30 11:54 | disposition home or self-care (01) | DRG 781 ==
LOC: M ED 16:10 → M ED INP 20:19 → M PCU 23:52
PROVIDERS: ADMIT Internal Medicine; ATTEND General Practice
DX: O99.89 Other specified diseases and conditions complicating pregnancy, childbirth and the puerperium (principal); E87.2 Acidosis; R07.9 Chest pain, unspecified; Z3A.35 35 weeks gestation of pregnancy; R06.00 Dyspnea, unspecified; E87.6 Hypokalemia; O99.283 Endocrine, nutritional and metabolic diseases complicating pregnancy, third trimester; R00.0 Tachycardia, unspecified; D72.829 Elevated white blood cell count, unspecified; D64.9 Anemia, unspecified; O99.013 Anemia complicating pregnancy, third trimester; Z79.899 Other long term (current) drug therapy; Z88.1 Allergy status to other antibiotic agents

== ENCOUNTER 2016-07-28 01:34 | Inpatient (IN) | payer OTHER ==
[~2016-07-28] VITALS: Ht 162.6 cm; Wt 82.0 kg
[~2016-07-28 01:34] MED LIST changes: +ACET-654 PO; +PRENTAB16 PO; +PROM50TA2 PO
[2016-07-28 04:59] LABS: BASO % 0.2 % (0.0-1.0); EOS # 0.1 K/mm3 (0.0-0.50); LARGE UNSTAINED CELL # 0.1 K/mm3 (0.0-0.4); LARGE UNSTAINED CELL % 1.1 % (0.0-4.0); LYMPH # 1.7 K/mm3 (1.5-6.5); LYMPH % 14.6 % (24.0-44.0); MEAN CORPUSCULAR HEMOGLOBIN 26.1 pg (27.0-33.0); MEAN CORPUSCULAR HGB CONC 33.4 g/dl (32.0-36.5); MEAN CORPUSCULAR VOLUME 78.1 fl (80.0-96.0); MONO # 0.4 K/mm3 (0.0-0.8); MONO % 3.9 % (0.0-5.0); NEUTROPHILS % 79.3 % (36.0-66.0); PLATELET COUNT, AUTOMATED 145 k/mm3 (150-450); RED CELL DISTRIBUTION WIDTH 14.8 % (11.5-14.5); WHITE BLOOD COUNT 11.3 K/mm3 (4.0-10.0)
[2016-07-28] MEDS ORDERED: VANCOMYCIN HCL 1,000 MG, VIAL MATE ADAPTER 1 EACH in D5W 250 ML IV SCH (05:00)
[2016-07-28] MEDS ORDERED: FENTANYL 2MCG/ML ROPIVACAINE 0.2% IN 0.9% NACL 200ML IVBAG As Ordered ONE (05:15)
[2016-07-28] MEDS ORDERED: ONDANSETRON 4MG/2ML VIAL (J2405) IV PRN (07:30)
[2016-07-28] MEDS ORDERED: diphenhydrAMINE INJ 50MG/ML VIAL (J1200) IV PRN (07:30)
[2016-07-28] MEDS ORDERED: REFRIGERATOR IV KEYS XX PRN (07:30)
[2016-07-28] MEDS ORDERED: EPIDURAL COMMENT XX SCH (07:30)
[2016-07-28] MEDS ORDERED: EPIDURAL/PCA KEYS XX PRN (07:30)
[2016-07-28] MEDS ORDERED: ePHEDrine SULFATE 25 MG/5 ML(5MG/ML) SYRINGE IV PRN (07:30)
[2016-07-28] MEDS ORDERED: FENTANYL/ROPIVACAINE/NACL BAG 200 ML EPIDURAL SCH (07:30)
[2016-07-28] MEDS ORDERED: LACTATED RINGER'S 1000 ML IV PRN (07:30)
[2016-07-28] MEDS ORDERED: NALOXONE INJ 0.4 MG/1 ML VIAL (J2310) IV PRN (07:30)
[2016-07-28] MEDS ORDERED: OXYTOCIN 30 UNITS IN 0.9% NaCl 500ML IV BAG (J2590) As Ordered ONE (09:15)
[2016-07-28] MEDS ORDERED: DIBUCAINE 1% OINTMENT 30GM TOP PRN (09:45)
[2016-07-28] MEDS ORDERED: DOCUSATE SODIUM 100 MG CAP PO PRN (09:45)
[2016-07-28] MEDS ORDERED: METHYLERGONOVINE MALEATE 0.2 MG TAB PO PRN (09:45)
[2016-07-28] MEDS ORDERED: OXYTOCIN INJ 10 UNITS/ML VIAL (J2590) IV ONE (09:45)
[2016-07-28] MEDS ORDERED: MEASLES,MUMPS,RUBELLA VACCINE INJ (MMR-II) (90707) SC SCH (09:45)
[2016-07-28] MEDS ORDERED: OXYTOCIN INJ 10 UNITS/ML VIAL (J2590) As Ordered ONE (09:47)
[2016-07-28 09:50] LABS: CORD GAS ABE V 0.8; CORD GAS HCO3 V 25.3 MEQ/L; CORD GAS O2 SAT V 65.2 %; CORD GAS PCO2 V 40.3 mmHg; CORD GAS PH V 7.416 UNITS; CORD GAS PO2 V 25.2 mmHg; CORD GAS SBC V 24.2 MEQ/L; CORD GAS TCO2 V 26.6 MEQ/L
[2016-07-28 11:47] VITALS: BP 133/72
[2016-07-28] MEDS: PRENATAL VITAMIN TAB PO SCH (12:07)
[2016-07-28] MEDS: OXYTOCIN DRIP 30 UNITS in APPROPRIATE DILUENT 1 EA IV SCH ×2 (12:07→16:04)
[2016-07-28 18:12] VITALS: BP 147/69
[2016-07-28] MEDS: IBUPROFEN 800 MG TAB PO PRN (20:01)
[2016-07-28] MEDS: ACETAMINOPHEN 500 MG TAB PO PRN (20:01)
[2016-07-28 20:05] VITALS: BP 147/69
[2016-07-29 06:58] VITALS: BP 131/61
[2016-07-29] MEDS: PRENATAL VITAMIN TAB PO SCH (07:28)
--- NOTE | 2016-07-29 08:45 | IPN ---
DATE OF SERVICE: 07/29/2016 This lady came in in spontaneous labor. Had a spontaneous vaginal delivery of a livebirth male weighing 8 pounds 6 ounces, 3640 grams, scores of 9 and 9 and 1 and 5 minutes, respectively. Arterial pH was not done. Venous pH was 7.4, base excess -0.08. Her admitting hemoglobin was 11.6, hematocrit 34.7, and platelets were 145. Today, she is doing well, mobilizing, requesting Wellbutrin to be reordered which we will do. She understands the risks and benefits of Wellbutrin while breast-feeding. Her blood pressure today is 131/61, respirations are 18, pulse is 76, and temperature is 97.9. We discussed phlebitis, cystitis, mastitis, endometritis, cellulitis, diet, exercise, pain management, perineal, breast, and wound care. She is not going to do any control at the present time. We are planning on circumcising the infant today after medical clearance by the partner, and discharge is planned for tomorrow. The rest of the examination is unremarkable. Chest is clear bilaterally to the bases. Thyroid is normal. No jugular venous distention (JVD), bruits. Abdomen: Soft. Uterus 2 below. Lochia is moderate. Four quadrant bowel sounds, and perineum is intact. The patient and the baby are doing well. Edited 07/29/2016 aml
[2016-07-29 09:00] VITALS: BP 123/60
[2016-07-29] MEDS: buPROPion **XL** TABLET 150MG (WELLBUTRIN XL) PO SCH (09:47)
[2016-07-29 18:00] VITALS: BP 136/75
[2016-07-29] MEDS: ACETAMINOPHEN 500 MG TAB PO PRN (20:36)
[2016-07-29] MEDS: IBUPROFEN 800 MG TAB PO PRN (20:36)
[2016-07-29 22:13] VITALS: BP 136/75
[2016-07-30 05:37] VITALS: BP 127/70
[2016-07-30] MEDS ORDERED: MOTR200T44 PO (08:24)
[2016-07-30] MEDS ORDERED: WELLTAB40 PO (08:24)
[2016-07-30] MEDS ORDERED: COLA100C3 PO (08:24)
[2016-07-30] MEDS: buPROPion **XL** TABLET 150MG (WELLBUTRIN XL) PO SCH (09:00)
[2016-07-30] MEDS: PRENATAL VITAMIN TAB PO SCH (09:00)
--- NOTE | 2016-08-03 05:45 | DN ---
DATE: 07/28/2016 DELIVERY NOTE This lady came in in spontaneous labor with epidural in place, delivered a live male infant weighing 3640 grams, scores of 9 and 9 at one and five minutes respectively. Venous pH 7.4, base excess -0.08. Placenta delivered spontaneously thereafter. Three-vessel cord, membranes and tissues intact. The placenta contracted well under Pitocin. The examination of the vagina, the cervix, anterior and environmental program manager kumar and sphincter were intact. The patient and baby tolerating procedure well.
--- NOTE | 2016-08-03 05:46 | IPN ---
DATE OF VISIT: 07/28/2016 This lady was admitted in spontaneous labor, had an artificial rupture of membranes (AROM) draining clear liquor at 38-3 weeks of gestation. She had an episode of bradycardia with resuscitation. At changing position, oxygen and stimulation of the head, the heart recovered. We do anticipate spontaneous vaginal delivery. Monitored the strip for the next 20 minutes. No evidence of any further decelerations. We return to a category I strip.
== END 2016-07-30 12:00 | disposition home or self-care (01) | DRG 775 ==
LOC: M LDO 01:34 → M LDI 04:11 → M OBS 11:34
PROVIDERS: ADMIT Obstetrics & Gynecology; ATTEND Obstetrics & Gynecology
PROC: 10E0XZZ Delivery of Products of Conception, External Approach (ICD-10-PCS; principal; 2016-07-28)
DX: O99.824 Streptococcus B carrier state complicating childbirth (principal); Z3A.38 38 weeks gestation of pregnancy; Z37.0 Single live birth